=== PATIENT | male | born 1945 | race Caucasian/White ===

== ENCOUNTER 2019-10-05 21:11 | Emergency (ER) | payer OTHER ==
[~2019-10-05] VITALS: Ht 170.2 cm; Wt 112.6 kg
[~2019-10-05 21:11] MED LIST: AMLO10TA8 PO; ATEN100T PO; ATOR20TA58 PO; LEVE500T6 PO; LISI2.5T PO; TAMS0.4C2 PO; ZOST1940 SQ
--- NOTE | 2019-10-05 21:28 | PHYS DOC ---
Adult General Chief Complaint Chief Complaint: SEIZURE HPI HPI 74-year-old male presents to the emergency Department complaints of seizure activity. Patient's underlying history of [facility] history [facility] He has well has a history of brain tumor followed at the [facility]. Last tonic- clonic seizure was approximately . He does have petit mal seizures according to EMS history. Patient is alert and oriented this time denies any acute complaints. Seizure tonight last approximate one to 2 minutes according to EMS. Review of Systems Review of Systems Constitutional: Denies fever or chills [] Eyes: Denies change in visual acuity, redness, or eye pain [] HENT: Denies nasal congestion or sore throat [] Respiratory: Denies cough or shortness of breath [] Cardiovascular: No additional information not addressed in HPI [] GI: Denies abdominal pain, nausea, vomiting, bloody stools or diarrhea [] Musculoskeletal: Denies back pain or joint pain [] Neurologic: Denies headache, focal weakness or sensory changes [] All other systems were reviewed and found to be within normal limits, except as documented in this note. Current Medications Current Medications Current Medications Medications (Trade) Dose Ordered Sig/Giovanna Start Time Stop Time Status Last Admin Dose Admin Acetaminophen (Tylenol) 1,000 mg 1X ONCE 10/05/19 22:00 10/05/19 22:01 DC 10/05/19 22:13 1,000 MG Allergies Allergies Allergies Coded Allergies Type Severity Reaction Last Updated Verified Penicillins Allergy Intermediate 01/03/17 Yes amoxicillin Allergy Intermediate 01/03/17 Yes Physical Exam Physical Exam Constitutional: Well developed, well nourished, no acute distress, non-toxic appearance. [] HENT: Normocephalic, atraumatic, bilateral external ears normal, oropharynx moist, no oral exudates, nose normal. [] Eyes: PERRLA, EOMI, conjunctiva normal, no discharge. [] Cardiovascular:Heart rate regular rhythm, no murmur [] Lungs & Thorax: Bilateral breath sounds clear to auscultation [] Abdomen: Bowel sounds normal, soft, no tenderness, no masses, no pulsatile masses. [] Skin: Warm, dry, no erythema, no rash. [] Back: No tenderness, no CVA tenderness. [] Extremities: No tenderness, no edema. [] Neurologic: Alert and oriented X 3, no focal deficits noted. [] Psychologic: Affect normal, judgement normal, mood normal. [] Current Patient Data Vital Signs Vital Signs Date Time Temp Pulse Resp B/P (MAP) Pulse Ox O2 Delivery O2 Flow Rate FiO2 10/05/19 21:12 98.2 78 18 167/73 (104) 95 Room Air 98.2 Lab Values Laboratory Tests Test 10/05/19 21:35 10/05/19 22:45 White Blood Count 11.0 x10^3/uL (4.0-11.0) Red Blood Count 4.80 x10^6/uL (4.30-5.70) Hemoglobin 14.0 g/dL (13.0-17.5) Hematocrit 41.0 % (39.0-53.0) Mean Corpuscular Volume 86 fL (79-100) Mean Corpuscular Hemoglobin 29 pg (25-35) Mean Corpuscular Hemoglobin Concent 34 g/dL (31-37) Red Cell Distribution Width 15.3 % (11.5-14.5) H Platelet Count 244 x10^3/uL (140-400) Neutrophils (%) (Auto) 83 % (31-73) H Lymphocytes (%) (Auto) 11 % (24-48) L Monocytes (%) (Auto) 6 % (0-9) Eosinophils (%) (Auto) 0 % (0-3) Basophils (%) (Auto) 0 % (0-3) Neutrophils # (Auto) 9.0 x10^3/uL (1.8-7.7) H Lymphocytes # (Auto) 1.2 x10^3/uL (1.0-4.8) Monocytes # (Auto) 0.6 x10^3/uL (0.0-1.1) Eosinophils # (Auto) 0.0 x10^3/uL (0.0-0.7) Basophils # (Auto) 0.0 x10^3/uL (0.0-0.2) Sodium Level 142 mmol/L (136-145) Potassium Level 3.6 mmol/L (3.5-5.1) Chloride Level 102 mmol/L (98-107) Carbon Dioxide Level 27 mmol/L (21-32) Anion Gap 13 (6-14) Blood Urea Nitrogen 12 mg/dL (8-26) Creatinine 1.1 mg/dL (0.7-1.3) Estimated GFR (Cockcroft-Gault) 65.8 BUN/Creatinine Ratio 11 (6-20) Glucose Level 220 mg/dL (70-99) H Calcium Level 9.1 mg/dL (8.5-10.1) Total Bilirubin 0.3 mg/dL (0.2-1.0) Aspartate Amino Transferase (AST) 20 U/L (15-37) Alanine Aminotransferase (ALT) 31 U/L (16-63) Alkaline Phosphatase 115 U/L (46-116) Total Protein 7.2 g/dL (6.4-8.2) Albumin 3.2 g/dL (3.4-5.0) L Albumin/Globulin Ratio 0.8 (1.0-1.7) L Urine Collection Type Unknown Urine Color Yellow Urine Clarity Clear Urine pH 5.0 Urine Specific [place] 1.020 Urine Protein 100 mg/dL (NEG-TRACE) Urine Glucose (UA) 250 mg/dL (NEG) Urine Ketones (Stick) Negative mg/dL (NEG) Urine Blood Small (NEG) Urine Nitrite Negative (NEG) Urine Bilirubin Negative (NEG) Urine Urobilinogen Dipstick 0.2 mg/dL (0.2 mg/dL) Urine Leukocyte Esterase Negative (NEG) Urine RBC Occ /HPF (0-2) Urine WBC Occ /HPF (0-4) Urine Bacteria 0 /HPF (0-FEW) Urine Hyaline Casts Few /HPF Urine Mucus Mod /LPF Laboratory Tests 10/05/19 21:35 Laboratory Tests 10/05/19 21:35 EKG EKG [] Radiology/Procedures Radiology/Procedures [facility] [address] [place] [address] IMAGING REPORT Signed PATIENT: CHRISTY PORTER DACCOUNT: [id number] : 1945 LOCATION: ER AGE: 74 SEX: M EXAM STATUS: REG ER ORD. PHYSICIAN: JOVAN LINARES MD REASON: headache/seizure/history of brain tumor PROCEDURE: CT HEAD WO CONTRAST CT head without contrast dated 10/05/2019. COMPARISON: None. TECHNIQUE: Contiguous axial imaging of the head was performed from skull base to vertex. No contrast administered. FINDINGS: Large heterogeneous mass within the medial temporal lobe on the right measures up to 4.3 cm. There are scattered internal calcifications in the lesion is closely associated with the right internal carotid artery with extension to the right cavernous sinus and suprasellar cistern. There is mass effect upon the frontal horn of the right lateral ventricle and anterior third ventricle with estimated 5 mm of right to left shift. Mild surrounding vasogenic edema within the right temporal white matter. Ventricles and sulci are mildly prominent for age. Mild patchy low density throughout the deep/subcortical periventricular white matter. No subarachnoid hemorrhage or extra-axial collection. No intraventricular hemorrhage. Posterior fossa and brainstem unremarkable. Mild mucosal thickening of the bilateral ethmoid air cells. Visualized paranasal sinuses and mastoid air cells are otherwise clear. No apparent calvarial abnormality. IMPRESSION: 1. Large partially calcified mass centered at the medial right temporal lobe measuring up to 4.3 cm in size. It is difficult to discern whether this is intra-axial or extra-axial. Considerations would include a large MCA aneurysm or meningioma. Metastatic disease or primary malignancy not excluded. Recommend MRI with and without contrast for better evaluation. 2. There is mild mass effect and mild right to left midline shift. Mild vasogenic edema within the right temporal white matter. 3. Mild chronic small vessel ischemic changes and atrophy. Results discussed with ER physician at approximately 11:10 PM on the day of the study. Electronically signed by: Christy Wheeler MD (10/05/2019 11:11 PM) [facility] DICTATED and SIGNED BY: CHRISTY WHEELER MD DATE: 10/05/19 231 [] Course & Med Decision Making Course & Med Decision Making Pertinent Labs and Imaging studies reviewed. (See chart for details) []74-year-old male presents to the emergency Department complaints of seizure activity. Patient's underlying history of seizure history [facility]. He has well has a history of brain tumor followed at the [facility]. Last tonic- clonic seizure was approximately 1980s. He does have petit mal seizures according to EMS history. Patient is alert and oriented this time denies any acute complaints. Seizure tonight last approximate one to 2 minutes according to EMS. Labs/Imaging reviewed CT with evidence of known brain tumor - discussed follow up with PCP at [facility] Recommend follow up in the next 3 - 5 days as able Return to the ER with worsening concern for symptoms/recurrent seizure activity Dragon Disclaimer Dragon Disclaimer This electronic medical record was generated, in whole or in part, using a voice recognition dictation system. Departure Departure Impression: Primary Impression: Seizure Additional Impression: Brain tumor Disposition: HOME, SELF-CARE Condition: STABLE Referrals: UNKNOWN PCP NAME (PCP) Patient Instructions: Brain Tumor, Seizure, Adult Additional Instructions: Recommend follow up with PCP 3 - 5 days Return to the ER with worsening symptoms, intractable pain, fever, altered mental status Tylenol/Motrin as needed for pain Take seizure medications as prescribed Recommend [facility] Problem Qualifiers JOVAN LINARES MD Oct 05, 2019 21:28
[2019-10-05 21:49] LABS: BASO % 0 % (0-3); EOS % 0 % (0-3); LYMPH # 1.2 x10^3/uL (1.0-4.8); LYMPH % 11 % (24-48); MEAN CORPUSCULAR HEMOGLOBIN 29 pg (25-35); MEAN CORPUSCULAR HGB CONC 34 g/dL (31-37); MEAN CORPUSCULAR VOLUME 86 fL (79-100); MONO # 0.6 x10^3/uL (0.0-1.1); MONO % 6 % (0-9); NEUT % 83 % (31-73); PLATELET COUNT 244 x10^3/uL (140-400); RED CELL DISTRIBUTION WIDTH 15.3 % (11.5-14.5)
[2019-10-05 21:57] LABS: CALCIUM 9.1 mg/dL (8.5-10.1); CREATININE 1.1 mg/dL (0.7-1.3); GFR 65.8; POTASSIUM 3.6 mmol/L (3.5-5.1)
[2019-10-05] MEDS ORDERED: ACETAMINOPHEN 500 MG TABLET PO ONE (22:00)
[2019-10-05 22:03] LABS: ALBUMIN 3.2 g/dL (3.4-5.0); ALBUMIN/GLOBULIN RATIO 0.8 (1.0-1.7); TOTAL BILIRUBIN 0.3 mg/dL (0.2-1.0); TOTAL PROTEIN 7.2 g/dL (6.4-8.2)
[2019-10-05 23:13] LABS: BILIRUBIN,URINE NEGATIVE (NEG); CLARITY,URINE CLEAR; COLOR,URINE YELLOW; NITRITE,URINE NEGATIVE (NEG); PROTEIN,URINE 100 mg/dL (NEG-TRACE); UROBILINOGEN,URINE 0.2 mg/dL (0.2 mg/dL)
--- NOTE | 2019-10-05 23:14 | RAD ---
CT head without contrast dated 10/05/2019. COMPARISON: None. TECHNIQUE: Contiguous axial imaging of the head was performed from skull base to vertex. No contrast administered. FINDINGS: Large heterogeneous mass within the medial temporal lobe on the right measures up to 4.3 cm. There are scattered internal calcifications in the lesion is closely associated with the right internal carotid artery with extension to the right cavernous sinus and suprasellar cistern. There is mass effect upon the frontal horn of the right lateral ventricle and anterior third ventricle with estimated 5 mm of right to left shift. Mild surrounding vasogenic edema within the right temporal white matter. Ventricles and sulci are mildly prominent for age. Mild patchy low density throughout the deep/subcortical periventricular white matter. No subarachnoid hemorrhage or extra-axial collection. No intraventricular hemorrhage. Posterior fossa and brainstem unremarkable. Mild mucosal thickening of the bilateral ethmoid air cells. Visualized paranasal sinuses and mastoid air cells are otherwise clear. No apparent calvarial abnormality. IMPRESSION: 1. Large partially calcified mass centered at the medial right temporal lobe measuring up to 4.3 cm in size. It is difficult to discern whether this is intra-axial or extra-axial. Considerations would include a large MCA aneurysm or meningioma. Metastatic disease or primary malignancy not excluded. Recommend MRI with and without contrast for better evaluation. 2. There is mild mass effect and mild right to left midline shift. Mild vasogenic edema within the right temporal white matter. 3. Mild chronic small vessel ischemic changes and atrophy. Results discussed with ER physician at approximately 11:10 PM on the day of the study. Electronically signed by: Robert Wheeler MD (10/05/2019 11:11 PM) [facility]
[2019-10-05 23:20] LABS: BACTERIA,URINE 0 /HPF (0-FEW); HYALINE CASTS, URINE FEW /HPF; RBC,URINE OCC /HPF (0-2); WBC,URINE OCC /HPF (0-4)
[2019-10-05 23:30] VITALS: BP 171/66
[2019-10-06] MEDS ORDERED: ASPI325T8 PO (01:54)
[2019-10-06] MEDS ORDERED: LEVE500T6 PO (01:54)
[2019-10-06] MEDS ORDERED: ATOR10TA60 PO (01:54)
[2019-10-06] MEDS ORDERED: LISI-374 PO (01:54)
[2019-10-06] MEDS ORDERED: METF850T8 PO (01:54)
[2019-10-06] MEDS ORDERED: OMEG1CAP34 PO (01:55)
[2019-10-06] MEDS ORDERED: FERR325T14 PO (01:55)
[2019-10-06] MEDS ORDERED: MULT-114 PO (01:55)
== END 2019-10-05 23:55 | disposition home or self-care (01) ==
LOC: ER 21:11
DX: R56.9 Unspecified convulsions (principal); D49.6 Neoplasm of unspecified behavior of brain; Z88.0 Allergy status to penicillin; Z88.1 Allergy status to other antibiotic agents
CPT/HCPCS: 36415; 70450; 80053; 81001; 85025; 99285-25